=== PATIENT | female | born 1985 | race Caucasian/White ===

== ENCOUNTER 2020-01-14 09:44 | Inpatient (IN) | payer OTHER ==
[~2020-01-14] VITALS: Ht 177.8 cm; Wt 89.8 kg
[2020-01-14 09:45] VITALS: BP 123/78
[2020-01-14 10:01] LABS: BE(vivo) -5.9 mmol/L (-2 to +3); HCO3 18.2 mmol/L (22.0-26.0); PCO2 32.5 mmHg (35.0-45.0); PO2 93.6 mmHg (80.0-100.0); pH 7.367 (7.360-7.450)
[2020-01-14 10:26] LABS: ABSOLUTE NEUTROPHILS 6.1 thou/uL (1.4-8.2); BASOPHILS 0.7 % (0.0-2.0); EOSINOPHILS 0.6 % (0.0-3.0); HEMATOCRIT 46.4 % (37.0-47.0); HEMOGLOBIN 15.7 gm/dL (12.0-15.0); MCH 34.1 pg (26.0-34.0); MCHC 33.9 g/dL (28.0-37.0); MCV 100.5 fL (80.0-100.0); MONOCYTES 6.2 % (1.0-8.0); PLATELET COUNT 292 thou/uL (150-400); POLYS 68.5 % (36.0-66.0); RBC 4.61 mil/uL (4.20-5.00); RDW 12.9 % (10.5-14.5); WBC 8.9 thou/uL (4.0-11.0)
--- NOTE | 2020-01-14 10:30 | EKG ---
[facility] [place] [address] ELECTROCARDIOGRAM REPORT Name: AMRITA LOZADA Room #: PRE [facility].#: [id number] Admission: Attend Phys: Discharge: Date of : 87 Report #: [id number] THIS REPORT FOR: cc: Carlos Bustillo MD [facility] THIS REPORT FOR: //name// [facility] ED Test Date: 2020-01-14 Test Time: 10:14:30 Pat Name: AMRITA LOZADA Department: Room: Gender: Humanities Professor: [facility] : 1985 Requested By: Nahid Chapman Order Number: [id number] MD: Carlos Bustillo Measurements Intervals [place] Rate: 123 P: 19 [place]: 131 QRS: 41 QRSD: 101 T: 44 QT: 323 QTc: 462 Interpretive Statements Sinus tachycardia Nonspecific ST segment abnormality No previous ECG available for comparison Electronically Signed On 01-14-2020 10:29:48 PRICE CHECKER by Carlos Bustillo [email or web address] <ELECTRONICALLY SIGNED> By: Carlos Bustillo MD, [facility] 01/14/20 1029 1014 1014 Carlos Bustillo MD, FACC /EPI
[2020-01-14 10:38] LABS: ANION GAP 12 mmol/L (7-16); BUN 11 mg/dL (7-18); CALCIUM 9.4 mg/dL (8.5-10.1); CHLORIDE 103 mmol/L (98-107); CO2 24 mmol/L (21-32); CREATININE 0.7 mg/dL (0.6-1.0); GLUCOSE 81 mg/dL (74-106); SODIUM 139 mmol/L (136-145)
[2020-01-14 10:42] LABS: POTASSIUM 4.7 mmol/L (3.5-5.1)
[2020-01-14 10:49] LABS: ALBUMIN 3.9 g/dL (3.4-5.0); MAGNESIUM 2.1 mg/dL (1.8-2.4); SALICYLATE < 2.8 mg/dL (2.8-20.0); SGOT 43 U/L (15-37); SGPT 42 U/L (30-65); TOTAL BILIRUBIN 0.3 mg/dL (<0.1-1.0); TOTAL PROTEIN 8.8 g/dL (6.4-8.2); TROPONIN-I <0.06 ng/mL (<0.06)
[2020-01-14 11:10] LABS: URINE BILIRUBIN NEGATIVE (Negative); URINE BLOOD TRACE (Negative); URINE CLARITY CLEAR; URINE COLOR YELLOW; URINE GLUCOSE-RANDOM* NEGATIVE (Negative); URINE KETONES NEGATIVE (Negative); URINE LEUKOCYTES-REFLEX TRACE (Negative); URINE NITRITE-REFLEX NEGATIVE (Negative); URINE PROTEIN (DIPSTICK) NEGATIVE (Negative); URINE SPECIFIC GRAVITY <= 1.005 (1.005-1.035); URINE UROBILINOGEN 0.2 E.U./dl (0.2-1.0)
[2020-01-14 11:20] LABS: AMP/METHAMP Negative (Negative); BARBITURATES Negative (Negative); BENZODIAZEPINES Negative (Negative); COCAINE Negative (Negative); METHADONE Negative (Negative); OPIATES Negative (Negative); PCP Negative (Negative)
[2020-01-14 12:53] VITALS: BP 81/41
--- NOTE | 2020-01-14 13:44 | NUR ---
REPORT CALLED TO ALEKSANDRA REED
[2020-01-14 15:00] VITALS: BP 112/63; BP 122/64
[2020-01-14 15:15] LABS: PHOSPHORUS 2.4 mg/dL (2.5-4.9)
[2020-01-14 16:04] LABS: FOLIC ACID 8.7 ng/mL (8.6-58.9)
[2020-01-14 19:34] VITALS: BP 111/77
[2020-01-14 23:55] VITALS: BP 121/70
[2020-01-15 05:11] VITALS: BP 107/61
[2020-01-15 07:30] VITALS: BP 124/69
[2020-01-15] MEDS ORDERED: VITAMIN B-1100 M2 PO (10:18)
[2020-01-15] MEDS ORDERED: SUPER THERAVIT1 EACH PO (10:18)
[2020-01-15 11:10] VITALS: BP 124/69
--- NOTE | 2020-01-15 12:07 | NUR ---
ASSUMED CARE OF PT AT SHIFT CHANGE. ASSESSMENTS CHARTED. MEDS GIVEN PER JAN. PT A&OX4, NO C/O PAIN, NAUSEA OR ANXIETY. DISCHARGE ORDERS AND INSTRUCTIONS COMPLETE. TELE AND IV DC'D. PT WALKED OUT WITH MOTHER TO PRIVATE CAR.
[2020-01-15 12:33] VITALS: BP 124/69
== END 2020-01-15 11:40 | disposition home or self-care (01) | DRG 897 ==
LOC: ER 09:44 → EROBS 13:34 → 2N 13:34
PROVIDERS: Emergency Medicine; ADMIT Internal Medicine
DX: F10.129 Alcohol abuse with intoxication, unspecified (principal); E87.2 Acidosis; G93.40 Encephalopathy, unspecified; I95.9 Hypotension, unspecified; J70.5 Respiratory conditions due to smoke inhalation; R00.0 Tachycardia, unspecified; Z79.899 Other long term (current) drug therapy
CPT/HCPCS: 10081

== ENCOUNTER 2020-08-21 19:33 | Emergency (ER) | payer OTHER ==
[~2020-08-21] VITALS: Ht 180.3 cm; Wt 97.5 kg
[~2020-08-21 19:33] MED LIST: SUPER THERAVIT1 EACH PO; VITAMIN B-1100 M2 PO
[2020-08-21 20:08] LABS: URINE BILIRUBIN NEGATIVE (Negative); URINE BLOOD 3+ (Negative); URINE CLARITY CLEAR; URINE COLOR YELLOW; URINE GLUCOSE-RANDOM* NEGATIVE (Negative); URINE KETONES TRACE (Negative); URINE LEUKOCYTES-REFLEX NEGATIVE (Negative); URINE NITRITE-REFLEX NEGATIVE (Negative); URINE PROTEIN (DIPSTICK) NEGATIVE (Negative); URINE SPECIFIC GRAVITY >= 1.030 (1.005-1.035); URINE UROBILINOGEN 0.2 E.U./dl (0.2-1.0)
[2020-08-21 20:20] LABS: HYALINE CASTS 0-3 Few /LPF (None Seen)
[2020-08-21 20:21] LABS: SQUAMOUS 4-10 Moderate /LPF (0-3); URINE WBC-REFLEX 0-5 Rare /HPF (0-5)
[2020-08-21 20:22] LABS: BACTERIA-REFLEX 1-9 Few /HPF (None Seen); CRYSTALS None Seen /LPF (None Seen); URINE RBC 0-2 Rare /HPF (0-2)
[2020-08-21] MEDS ORDERED: BIRTH CONTROL (21:38)
[2020-08-21] MEDS ORDERED: NORCO 5-325 TA1 EAC2 PO (23:19)
[2020-08-21 23:29] VITALS: BP 132/84
== END 2020-08-21 23:31 | disposition home or self-care (01) ==
LOC: ER 19:33
PROVIDERS: Emergency Medicine
DX: R10.2 Pelvic and perineal pain (principal); R11.2 Nausea with vomiting, unspecified; R93.89 Abnormal findings on diagnostic imaging of other specified body structures; R10.9 Unspecified abdominal pain; Z87.442 Personal history of urinary calculi

== ENCOUNTER 2020-08-23 15:29 | Emergency (ER) | payer OTHER ==
[~2020-08-23] VITALS: Ht 180.3 cm; Wt 97.5 kg
[~2020-08-23 15:29] MED LIST changes: +BIRTH CONTROL; +NORCO 5-325 TA1 EAC2 PO
[2020-08-23 15:55] LABS: URINE BILIRUBIN NEGATIVE (Negative); URINE BLOOD 3+ (Negative); URINE CLARITY CLEAR; URINE COLOR YELLOW; URINE GLUCOSE-RANDOM* NEGATIVE (Negative); URINE KETONES NEGATIVE (Negative); URINE LEUKOCYTES-REFLEX NEGATIVE (Negative); URINE NITRITE-REFLEX NEGATIVE (Negative); URINE PROTEIN (DIPSTICK) NEGATIVE (Negative); URINE SPECIFIC GRAVITY >= 1.030 (1.005-1.035); URINE UROBILINOGEN 0.2 E.U./dl (0.2-1.0)
[2020-08-23 16:01] LABS: BACTERIA-REFLEX 1-9 Few /HPF (None Seen); CASTS None Seen /LPF (None Seen); CRYSTALS None Seen /LPF (None Seen); SQUAMOUS 0-3 Few /LPF (0-3); URINE RBC >20 Many /HPF (0-2); URINE WBC-REFLEX 0-5 Rare /HPF (0-5)
[2020-08-23 19:41] LABS: ABSOLUTE NEUTROPHILS 5.9 thou/uL (1.4-8.2); BASOPHILS 0.6 % (0.0-2.0); EOSINOPHILS 1.3 % (0.0-3.0); HEMATOCRIT 40.8 % (37.0-47.0); LYMPHOCYTES 24.8 % (24.0-44.0); MCH 32.9 pg (26.0-34.0); MCHC 34.3 g/dL (28.0-37.0); MCV 95.9 fL (80.0-100.0); MONOCYTES 6.1 % (1.0-8.0); PLATELET COUNT 330 thou/uL (150-400); POLYS 67.2 % (36.0-66.0); RBC 4.25 mil/uL (4.20-5.00); RDW 12.4 % (10.5-14.5); WBC 8.8 thou/uL (4.0-11.0)
[2020-08-23 20:06] LABS: ALBUMIN 3.8 g/dL (3.4-5.0); CALCIUM 8.9 mg/dL (8.5-10.1); CREATININE 0.6 mg/dL (0.6-1.0); POTASSIUM 4.8 mmol/L (3.5-5.1); TOTAL BILIRUBIN 0.4 mg/dL (0.2-1.0); TOTAL PROTEIN 8.3 g/dL (6.4-8.2)
[2020-08-23 21:23] VITALS: BP 124/77
[2020-08-23] MEDS ORDERED: NORCO 5-325 TA1 EAC2 PO (21:23)
== END 2020-08-23 21:23 | disposition home or self-care (01) ==
LOC: ER 15:29
PROVIDERS: Physician Assistant
DX: N93.9 Abnormal uterine and vaginal bleeding, unspecified (principal); Z79.899 Other long term (current) drug therapy